=== PATIENT | male | born 2000 | race Caucasian/White ===

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

== ENCOUNTER 2021-04-28 16:35 | Emergency (ER) | payer OTHER ==
[2021-04-28] MEDS ORDERED: Acetaminophen 325 MG TAB ONE (18:40)
[2021-04-28] MEDS ORDERED: Boostrix 0.5 ML (Tdap) VIAL ONE (18:40)
== END 2021-04-28 18:58 | disposition home or self-care (01) ==
LOC: ERS 16:35
DX: S61.451A Open bite of right hand, initial encounter (principal); W54.0XXA Bitten by dog, initial encounter; Z79.899 Other long term (current) drug therapy; F90.9 Attention-deficit hyperactivity disorder, unspecified type
CPT/HCPCS: 90471; 90715

== ENCOUNTER 2021-05-06 16:38 | Emergency (ER) | payer OTHER | END 2021-05-06 19:01 | disposition home or self-care (01) | LOC: ERS 16:38 | DX: S61.551A Open bite of right wrist, initial encounter (principal); W54.0XXA Bitten by dog, initial encounter | CPT/HCPCS: 99283 ==

== ENCOUNTER 2021-06-24 13:08 | Outpatient (CLI) | payer OTHER | END 2021-06-24 13:09 | disposition home or self-care (01) | LOC: BICRAD 13:08 | PROVIDERS: ATTEND Family Medicine | DX: M25.562 Pain in left knee (principal) ==